=== PATIENT | female | born 1950 | race Asian ===

== ENCOUNTER 2021-08-16 21:07 | Inpatient (IN) | payer MEDICARE, OTHER ==
[~2021-08-16] VITALS: Ht 162.6 cm; Wt 50.4 kg
[~2021-08-16 21:07] MED LIST: ACAR100T2 PO; ACET-3385 PO; AMLO-257 PO; ATOR80TA PO; BUSP5TAB3 PO; CETI5TAB10 PO; CLON0.5T4 PO; FENO45CA PO; GLYB5TAB8 PO; LABE100T5 PO; LABE200T5 PO; LE SQ; MOME0.132 IH; MOME17SP4 NS; MONT-35 PO; MULT1TAB67 PO; OMEP20 PO; PRAM1TAB3 PO; PROZ10 PO; SITA50 PO; VALS160T2 PO
[2021-08-16 22:28] LABS: BASOPHILS % (AUTO) 0.5 % (0.0-2.0); HEMATOCRIT 22.5 % (36-46); HEMOGLOBIN 7.4 g/dL (12.0-16.0); LYMPHOCYTES # (AUTO) 1.3 K/uL (1.0-4.8); LYMPHOCYTES % (AUTO) 18.8 % (22.0-44.0); MEAN CORPUSCULAR HEMOGLOBIN 30.4 pg (26.0-34.0); MEAN CORPUSCULAR HGB CONC 32.9 G/dL (31.0-37.0); MEAN CORPUSCULAR VOLUME 92 fL (80-100); MONOCYTES # (AUTO) 0.4 K/uL (0.1-1.0); NEUTROPHILS # (AUTO) 5.1 K/uL (1.8-7.7); NEUTROPHILS % (AUTO) 72.7 % (40.0-70.0); PLATELET COUNT (AUTO) 257 K/uL (150-450); RED BLOOD CELL COUNT(AUTO) 2.43 MIL/uL (4.00-5.20); RED CELL DISTRIBUTION WIDTH 15.2 % (11.5-14.5)
[2021-08-16 22:37] LABS: CALCIUM, TOTAL 8.9 mg/dL (8.8-10.5); CREATININE 5.37 mg/dL (0.60-1.30); POTASSIUM 4.8 mmol/L (3.5-5.1)
[2021-08-16 22:43] LABS: ALBUMIN 2.4 g/dL (3.4-5.0); BILIRUBIN,TOTAL 0.4 mg/dL (0.1-1.0); TOTAL PROTEIN, SERUM 5.3 g/dL (6.4-8.2)
[2021-08-16 23:24] LABS: PROTHROMBIN TIME 10.9 SEC (9.4-11.6)
[2021-08-17] VITALS (23 sets, daily range): BP systolic 115–158; BP diastolic 42–77
[2021-08-17] MEDS ORDERED: 0.9% SODIUM CHLORIDE 10 ML SYRINGE IVP PRN (00:45)
[2021-08-17] MEDS ORDERED: ACETAMINOPHEN 325 MG TABLET PO PRN (00:45)
[2021-08-17] MEDS ORDERED: ONDANSETRON HCL 4 MG/2 ML VIAL IVP PRN ×2 (00:45→01:00)
[2021-08-17] MEDS ORDERED: DEXTROSE 50%-WATER 25 GM/50 ML SYRINGE IVP PRN (01:00)
[2021-08-17 01:17] LABS: HEMATOCRIT 21.3 % (36-46)
[2021-08-17 02:07] LABS: COVID AG,FIA SOURCE NASAL SWAB
[2021-08-17] MEDS ORDERED: SODIUM CHLORIDE 0.9% 1,000 ML ONE (04:59)
[2021-08-17] MEDS ORDERED: PEG 3350/NA SULF,BICARB,CL/KCL 4000 ML SOLUTION PO ONE (07:30)
[2021-08-17] MEDS ORDERED: SODIUM PHOS/SODIUM BIPHOS 133 ML ENEMA PR ONE ×2 (07:45)
[2021-08-17] MEDS ORDERED: FentaNYL CITRATE PF 100 MCG/2 ML VIAL ONE ×3 (08:22→09:42)
[2021-08-17] MEDS ORDERED: MIDAZOLAM HCL 2 MG/2 ML VIAL ONE ×2 (08:24)
[2021-08-17] MEDS ORDERED: FentaNYL CITRATE PF 100 MCG/2 ML VIAL IVP ONE (09:45)
[2021-08-17] MEDS: POLYETHYLENE GLYCOL 3350 17 GM PACKET PO SCH (12:00)
[2021-08-17] MEDS: INSULIN LISPRO 100 UNITS/ML SQ PRN (20:49)
[2021-08-18] VITALS (9 sets, daily range): BP systolic 150–200; BP diastolic 57–74
[2021-08-18 05:17] LABS: BASOPHILS % (AUTO) 0.7 % (0.0-2.0); EOSINOPHILS % (AUTO) 5.3 % (1.0-6.0); HEMATOCRIT 25.4 % (36-46); HEMOGLOBIN 8.7 g/dL (12.0-16.0); LYMPHOCYTES % (AUTO) 13.7 % (22.0-44.0); MEAN CORPUSCULAR HEMOGLOBIN 30.4 pg (26.0-34.0); MEAN CORPUSCULAR HGB CONC 34.4 G/dL (31.0-37.0); MEAN CORPUSCULAR VOLUME 88 fL (80-100); MONOCYTES # (AUTO) 0.5 K/uL (0.1-1.0); MONOCYTES % (AUTO) 6.8 % (2.0-9.0); NEUTROPHILS # (AUTO) 5.3 K/uL (1.8-7.7); NEUTROPHILS % (AUTO) 73.5 % (40.0-70.0); PLATELET COUNT (AUTO) 202 K/uL (150-450); RED BLOOD CELL COUNT(AUTO) 2.87 MIL/uL (4.00-5.20); RED CELL DISTRIBUTION WIDTH 15.8 % (11.5-14.5)
[2021-08-18 05:35] LABS: CALCIUM, TOTAL 8.9 mg/dL (8.8-10.5); CREATININE 3.39 mg/dL (0.60-1.30); MAGNESIUM 2.4 mg/dL (1.80-2.40); PHOSPHORUS 4.1 mg/dL (2.5-4.9); POTASSIUM 4.3 mmol/L (3.5-5.1)
[2021-08-18] MEDS ORDERED: PROPOFOL 1% 20 ML VIAL IVP ONE (06:13)
[2021-08-18] MEDS ORDERED: LIDOCAINE/PF 2% 5 ML SYRINGE IVP ONE (06:13)
[2021-08-18] MEDS: VITAMIN B COMP/VIT C/FOLIC ACID CAPSULE PO SCH (08:21)
[2021-08-18] MEDS: POLYETHYLENE GLYCOL 3350 17 GM PACKET PO SCH (08:21)
[2021-08-18] MEDS: OMEPRAZOLE 20 MG CAPSULE PO SCH ×2 (08:22→19:50)
[2021-08-18] MEDS: AmLODIPine BESYLATE 5 MG TABLET PO SCH (08:22)
[2021-08-18] MEDS: FLUoxetine HCL 20 MG CAPSULE PO SCH ×2 (08:23→20:24)
[2021-08-18] MEDS: BusPIRone HCL 5 MG TABLET PO SCH ×3 (08:23→20:24)
[2021-08-18] MEDS: LABETALOL HCL 200 MG TABLET PO SCH (08:24)
[2021-08-18] MEDS: ACETAMINOPHEN 325 MG TABLET PO PRN ×3 (08:31→22:33)
[2021-08-18] MEDS ORDERED: SitaGLIPtin PHOSPHATE 50 MG TABLET PO SCH (09:00)
[2021-08-18] MEDS: HydrALAZINE HCL 20 MG/ML VIAL IVP PRN ×2 (10:23→18:37)
[2021-08-18] MEDS: SEVELAMER CARBONATE 800 MG TABLET PO SCH ×2 (12:54→18:36)
[2021-08-18] MEDS: OxyCODONE HCL/ACETAMINOPHEN 5-325 MG TABLET PO PRN (16:52)
[2021-08-18] MEDS: MONTELUKAST SODIUM 10 MG TABLET PO SCH (19:50)
[2021-08-18] MEDS: MOMETASONE FUROATE 50 MCG/SPRAY 17 GM NASAL SPRAY NASAL SCH (19:51)
[2021-08-18] MEDS: ClonazePAM 0.5 MG TABLET PO SCH (20:24)
[2021-08-18] MEDS: LABETALOL HCL 100 MG TABLET PO SCH (20:24)
[2021-08-18] MEDS: INSULIN LISPRO 100 UNITS/ML SQ PRN (20:25)
[2021-08-19] VITALS (13 sets, daily range): BP systolic 141–215; BP diastolic 50–140
[2021-08-19] MEDS: HydrALAZINE HCL 20 MG/ML VIAL IVP PRN ×3 (00:37→17:53)
[2021-08-19] MEDS: OxyCODONE HCL/ACETAMINOPHEN 5-325 MG TABLET PO PRN ×3 (01:55→21:25)
[2021-08-19] MEDS: ACETAMINOPHEN 325 MG TABLET PO PRN ×2 (03:22→18:54)
[2021-08-19] MEDS: INSULIN LISPRO 100 UNITS/ML SQ PRN ×2 (06:20→17:51)
[2021-08-19] MEDS: POLYETHYLENE GLYCOL 3350 17 GM PACKET PO SCH (07:35)
[2021-08-19] MEDS: AmLODIPine BESYLATE 5 MG TABLET PO SCH (08:29)
[2021-08-19] MEDS: BusPIRone HCL 5 MG TABLET PO SCH ×3 (08:29→20:30)
[2021-08-19] MEDS: VITAMIN B COMP/VIT C/FOLIC ACID CAPSULE PO SCH (08:29)
[2021-08-19] MEDS: OMEPRAZOLE 20 MG CAPSULE PO SCH ×2 (08:30→20:30)
[2021-08-19] MEDS: LABETALOL HCL 200 MG TABLET PO SCH (08:30)
[2021-08-19] MEDS: SEVELAMER CARBONATE 800 MG TABLET PO SCH ×3 (08:30→17:50)
[2021-08-19] MEDS: FLUoxetine HCL 20 MG CAPSULE PO SCH ×2 (08:35→20:30)
[2021-08-19] MEDS ORDERED: SitaGLIPtin PHOSPHATE 25 MG TABLET PO SCH (09:00)
[2021-08-19 09:28] LABS: BASOPHILS % (AUTO) 0.8 % (0.0-2.0); EOSINOPHILS % (AUTO) 5.4 % (1.0-6.0); HEMATOCRIT 24.2 % (36-46); HEMOGLOBIN 8.2 g/dL (12.0-16.0); LYMPHOCYTES # (AUTO) 0.8 K/uL (1.0-4.8); LYMPHOCYTES % (AUTO) 12.7 % (22.0-44.0); MEAN CORPUSCULAR HEMOGLOBIN 30.1 pg (26.0-34.0); MEAN CORPUSCULAR HGB CONC 33.8 G/dL (31.0-37.0); MEAN CORPUSCULAR VOLUME 89 fL (80-100); MONOCYTES # (AUTO) 0.5 K/uL (0.1-1.0); MONOCYTES % (AUTO) 7.4 % (2.0-9.0); NEUTROPHILS # (AUTO) 4.6 K/uL (1.8-7.7); NEUTROPHILS % (AUTO) 73.7 % (40.0-70.0); PLATELET COUNT (AUTO) 203 K/uL (150-450); RED BLOOD CELL COUNT(AUTO) 2.72 MIL/uL (4.00-5.20); RED CELL DISTRIBUTION WIDTH 16.2 % (11.5-14.5)
[2021-08-19 09:40] LABS: CALCIUM, TOTAL 8.3 mg/dL (8.8-10.5); CREATININE 2.33 mg/dL (0.60-1.30); POTASSIUM 4.1 mmol/L (3.5-5.1)
[2021-08-19 10:27] LABS: MAGNESIUM 1.9 mg/dL (1.80-2.40); PHOSPHORUS 2.4 mg/dL (2.5-4.9)
[2021-08-19] MEDS ORDERED: LIDOCAINE/PF 1% 2 ML VIAL CAUDAL ONE (16:13)
[2021-08-19] MEDS: CALCIUM CARBONATE 500 MG CHEWABLE TABLET CHEW PRN ×3 (16:27→20:30)
[2021-08-19] MEDS: MONTELUKAST SODIUM 10 MG TABLET PO SCH (20:30)
[2021-08-19] MEDS: LABETALOL HCL 100 MG TABLET PO SCH (20:30)
[2021-08-19] MEDS: ClonazePAM 0.5 MG TABLET PO SCH (20:30)
[2021-08-19] MEDS: HydrALAZINE HCL 25 MG TABLET PO SCH (20:30)
[2021-08-19] MEDS: MOMETASONE FUROATE 50 MCG/SPRAY 17 GM NASAL SPRAY NASAL SCH (20:31)
[2021-08-20 05:10] VITALS: BP 205/71
[2021-08-20] MEDS: HydrALAZINE HCL 20 MG/ML VIAL IVP PRN (05:11)
[2021-08-20] MEDS: OxyCODONE HCL/ACETAMINOPHEN 5-325 MG TABLET PO PRN ×2 (06:18→21:27)
[2021-08-20 08:23] VITALS: BP 186/73
[2021-08-20] MEDS: AmLODIPine BESYLATE 10 MG TABLET PO SCH (08:34)
[2021-08-20] MEDS: HydrALAZINE HCL 25 MG TABLET PO SCH ×2 (08:34→20:54)
[2021-08-20] MEDS: SEVELAMER CARBONATE 800 MG TABLET PO SCH ×3 (08:34→17:48)
[2021-08-20] MEDS: LABETALOL HCL 200 MG TABLET PO SCH (08:35)
[2021-08-20] MEDS: OMEPRAZOLE 20 MG CAPSULE PO SCH ×2 (08:35→20:55)
[2021-08-20] MEDS: FLUoxetine HCL 20 MG CAPSULE PO SCH ×2 (08:35→20:55)
[2021-08-20] MEDS: VITAMIN B COMP/VIT C/FOLIC ACID CAPSULE PO SCH (08:35)
[2021-08-20] MEDS: BusPIRone HCL 5 MG TABLET PO SCH ×3 (08:35→20:55)
[2021-08-20] MEDS ORDERED: EPOETIN ALFA 10,000 UNITS/ML 2 ML VIAL SQ SCH (09:00)
[2021-08-20] MEDS: POLYETHYLENE GLYCOL 3350 17 GM PACKET PO SCH (09:11)
[2021-08-20 11:51] VITALS: BP 161/56
[2021-08-20] MEDS: LOSARTAN POTASSIUM 50 MG TABLET PO SCH (12:46)
[2021-08-20 12:53] LABS: GLUCOMETER DEV NAME(LOC) 5S.1B; GLUCOSE,POINT OF CARE 109 MG/DL (70-110)
[2021-08-20 12:53] LABS: GLUCOMETER DEV NAME(LOC) 5S.1B; GLUCOSE,POINT OF CARE 161 MG/DL (70-110)
[2021-08-20 12:53] LABS: GLUCOMETER DEV NAME(LOC) 5S.1B; GLUCOSE,POINT OF CARE 140 MG/DL (70-110)
[2021-08-20 12:53] LABS: GLUCOMETER DEV NAME(LOC) 5S.1B; GLUCOSE,POINT OF CARE 156 MG/DL (70-110)
[2021-08-20 12:53] LABS: GLUCOMETER DEV NAME(LOC) 5S.1B; GLUCOSE,POINT OF CARE 54 MG/DL (70-110)
[2021-08-20 16:01] VITALS: BP 153/66
[2021-08-20 16:07] LABS: BASOPHILS % (AUTO) 0.8 % (0.0-2.0); EOSINOPHILS % (AUTO) 5.2 % (1.0-6.0); HEMATOCRIT 23.5 % (36-46); HEMOGLOBIN 7.9 g/dL (12.0-16.0); LYMPHOCYTES # (AUTO) 0.7 K/uL (1.0-4.8); LYMPHOCYTES % (AUTO) 13.9 % (22.0-44.0); MEAN CORPUSCULAR HGB CONC 33.5 G/dL (31.0-37.0); MEAN CORPUSCULAR VOLUME 90 fL (80-100); MONOCYTES # (AUTO) 0.4 K/uL (0.1-1.0); MONOCYTES % (AUTO) 7.7 % (2.0-9.0); NEUTROPHILS # (AUTO) 3.8 K/uL (1.8-7.7); NEUTROPHILS % (AUTO) 72.4 % (40.0-70.0); PLATELET COUNT (AUTO) 204 K/uL (150-450); RED BLOOD CELL COUNT(AUTO) 2.63 MIL/uL (4.00-5.20); RED CELL DISTRIBUTION WIDTH 16.4 % (11.5-14.5)
[2021-08-20 16:16] LABS: CREATININE 3.92 mg/dL (0.60-1.30)
[2021-08-20 18:00] LABS: GLUCOMETER DEV NAME(LOC) 5N.1C; GLUCOSE,POINT OF CARE 111 MG/DL (70-110)
[2021-08-20 18:01] LABS: GLUCOMETER DEV NAME(LOC) 5S.2B; GLUCOSE,POINT OF CARE 132 MG/DL (70-110)
[2021-08-20 18:02] LABS: GLUCOMETER DEV NAME(LOC) 5N.3; GLUCOSE,POINT OF CARE 150 MG/DL (70-110)
[2021-08-20 18:02] LABS: GLUCOMETER DEV NAME(LOC) 5S.2B; GLUCOSE,POINT OF CARE 223 MG/DL (70-110)
[2021-08-20 18:02] LABS: GLUCOMETER DEV NAME(LOC) 5N.3; GLUCOSE,POINT OF CARE 132 MG/DL (70-110)
[2021-08-20 18:03] LABS: GLUCOMETER DEV NAME(LOC) 5N.3; GLUCOSE,POINT OF CARE 130 MG/DL (70-110)
[2021-08-20 18:03] LABS: GLUCOMETER DEV NAME(LOC) 5N.1C; GLUCOSE,POINT OF CARE 149 MG/DL (70-110)
[2021-08-20 20:30] VITALS: BP 177/74
[2021-08-20] MEDS: MONTELUKAST SODIUM 10 MG TABLET PO SCH (20:54)
[2021-08-20] MEDS: ClonazePAM 0.5 MG TABLET PO SCH (20:55)
[2021-08-20] MEDS: LABETALOL HCL 100 MG TABLET PO SCH (20:55)
[2021-08-20] MEDS: MOMETASONE FUROATE 50 MCG/SPRAY 17 GM NASAL SPRAY NASAL SCH (21:00)
[2021-08-21 00:38] VITALS: BP 175/70
[2021-08-21 04:00] VITALS: BP 188/77
[2021-08-21 04:01] VITALS: BP 188/77
[2021-08-21] MEDS: HydrALAZINE HCL 20 MG/ML VIAL IVP PRN ×2 (04:16→11:23)
[2021-08-21] MEDS: ACETAMINOPHEN 325 MG TABLET PO PRN ×2 (05:03→11:28)
[2021-08-21 05:31] LABS: GLUCOMETER DEV NAME(LOC) 5S.2B; GLUCOSE,POINT OF CARE 139 MG/DL (70-110)
[2021-08-21 08:32] LABS: GLUCOMETER DEV NAME(LOC) 5S.1B; GLUCOSE,POINT OF CARE 118 MG/DL (70-110)
[2021-08-21 08:32] LABS: GLUCOMETER DEV NAME(LOC) 5N.1C; GLUCOSE,POINT OF CARE 130 MG/DL (70-110)
[2021-08-21] MEDS: SEVELAMER CARBONATE 800 MG TABLET PO SCH ×2 (09:11→13:36)
[2021-08-21] MEDS: HydrALAZINE HCL 25 MG TABLET PO SCH (09:12)
[2021-08-21] MEDS: BusPIRone HCL 5 MG TABLET PO SCH (09:12)
[2021-08-21] MEDS: POLYETHYLENE GLYCOL 3350 17 GM PACKET PO SCH (09:12)
[2021-08-21] MEDS: FLUoxetine HCL 20 MG CAPSULE PO SCH (09:12)
[2021-08-21] MEDS: OMEPRAZOLE 20 MG CAPSULE PO SCH (09:13)
[2021-08-21] MEDS: VITAMIN B COMP/VIT C/FOLIC ACID CAPSULE PO SCH (09:13)
[2021-08-21] MEDS: AmLODIPine BESYLATE 10 MG TABLET PO SCH (09:13)
[2021-08-21] MEDS: LOSARTAN POTASSIUM 50 MG TABLET PO SCH (09:13)
[2021-08-21] MEDS: LABETALOL HCL 100 MG TABLET PO SCH (09:14)
[2021-08-21] MEDS: LABETALOL HCL 200 MG TABLET PO SCH (09:16)
[2021-08-21] MEDS ORDERED: LOSARTAN POTASSIUM 50 MG TABLET PO ONE (11:15)
[2021-08-21 11:49] VITALS: BP 208/91
[2021-08-21 12:35] VITALS: BP 165/67
[2021-08-21 16:11] LABS: GLUCOMETER DEV NAME(LOC) 5S.1B; GLUCOSE,POINT OF CARE 141 MG/DL (70-110)
[2021-08-22] MEDS ORDERED: LOSARTAN POTASSIUM 50 MG TABLET PO SCH (09:00)
[2021-08-22 17:26] LABS: GLUCOMETER DEV NAME(LOC) 5S.1B; GLUCOSE,POINT OF CARE 252 MG/DL (70-110)
[2021-08-22 17:26] LABS: GLUCOMETER DEV NAME(LOC) 5S.2B; GLUCOSE,POINT OF CARE 129 MG/DL (70-110)
[2021-08-22 17:26] LABS: GLUCOMETER DEV NAME(LOC) 5S.1B; GLUCOSE,POINT OF CARE 69 MG/DL (70-110)
== END 2021-08-21 15:05 | DRG 393 ==
LOC: EMS 21:07 → 5S 08-17 00:59
PROVIDERS: ADMIT Internal Medicine; ATTEND Internal Medicine
PROC: 30233N1 Transfusion of Nonautologous Red Blood Cells into Peripheral Vein, Percutaneous Approach (ICD-10-PCS; 2021-08-17)
PROC: 5A1D70Z Performance of Urinary Filtration, Intermittent, Less than 6 Hours Per Day (ICD-10-PCS; 2021-08-17)
PROC: 0W3P8ZZ Control Bleeding in Gastrointestinal Tract, Via Natural or Artificial Opening Endoscopic (ICD-10-PCS; principal; 2021-08-17 08:30)
PROC: 5A1D70Z Performance of Urinary Filtration, Intermittent, Less than 6 Hours Per Day (ICD-10-PCS; 2021-08-19)
DX: K62.6 Ulcer of anus and rectum (principal); N18.6 End stage renal disease; E43 Unspecified severe protein-calorie malnutrition; D62 Acute posthemorrhagic anemia; E87.1 Hypo-osmolality and hyponatremia; I12.0 Hypertensive chronic kidney disease with stage 5 chronic kidney disease or end stage renal disease; Z68.1 Body mass index [BMI] 19.9 or less, adult; E87.3 Alkalosis; Z20.822 Contact with and (suspected) exposure to COVID-19; K64.1 Second degree hemorrhoids; E03.9 Hypothyroidism, unspecified; D63.1 Anemia in chronic kidney disease; E11.22 Type 2 diabetes mellitus with diabetic chronic kidney disease; J44.9 Chronic obstructive pulmonary disease, unspecified; E11.649 Type 2 diabetes mellitus with hypoglycemia without coma; E78.5 Hyperlipidemia, unspecified; E83.39 Other disorders of phosphorus metabolism; K64.4 Residual hemorrhoidal skin tags; Z79.4 Long term (current) use of insulin; Z79.84 Long term (current) use of oral hypoglycemic drugs; Z79.899 Other long term (current) drug therapy; Z99.2 Dependence on renal dialysis; Z74.01 Bed confinement status; Z88.0 Allergy status to penicillin; Z88.8 Allergy status to other drugs, medicaments and biological substances
CPT/HCPCS: 74176; 80048; 80053; 82962; 83735; 84100; 85014; 85018; 85025; 85610; 85730; 86850; 86900; 86901; 86923; 87081; 87340; 90935; 97162; 97530; 99291; J0360; J0885; J2250; J2405; J2704; J3010; J3490; J7030; P9016